=== PATIENT | male | born 1990 | race Caucasian/White ===

== ENCOUNTER 2017-11-20 12:47 | Emergency (ER) | payer MEDICAID ==
[~2017-11-20] VITALS: Ht 167.6 cm; Wt 70.9 kg
[2017-11-20 12:54] VITALS: BP 111/61
== END 2017-11-20 14:37 | disposition home or self-care (01) ==
LOC: ER 12:48
DX: R07.89 Other chest pain (principal); F12.90 Cannabis use, unspecified, uncomplicated
CPT/HCPCS: 93005; 99283

== ENCOUNTER 2017-11-28 05:15 | Emergency (ER) | payer MEDICAID ==
[~2017-11-28] VITALS: Ht 175.3 cm; Wt 70.9 kg
[2017-11-28] MEDS ORDERED: ibuprofen tablet 400 MG TABLET PO ONE (06:05)
[2017-11-28 07:33] VITALS: BP 122/96
== END 2017-11-28 07:34 | disposition home or self-care (01) ==
LOC: ER 05:15
DX: R07.9 Chest pain, unspecified (principal); F17.200 Nicotine dependence, unspecified, uncomplicated; F12.90 Cannabis use, unspecified, uncomplicated
CPT/HCPCS: 36415; 71045; 84484; 93005; 99285